=== PATIENT | male | born 1945 | race Caucasian/White ===

== ENCOUNTER 2016-07-03 16:33 | Emergency (ER) | payer OTHER ==
[~2016-07-03] VITALS: Ht 177.8 cm; Wt 81.6 kg
[~2016-07-03 16:33] MED LIST: ASPIRIN EC81 M1 PO; AUGMENTIN 875-1 EACH PO; BRILINTA90 M1 PO; CIPRO 500MG (E500 MG PO; CIPRO500 M1 PO; FLAG500 PO; FLAGYL500 MG PO; METOPROLOL SUCC25 M1 PO; NASONEX17 GM NASB; NORCO 5-325 TA1 EACH PO; SERTRALINE HYD100 MG PO; ZITHROMAX Z-PA250 M1 PO
[2016-07-03 16:54] LABS: ABSOLUTE BASOPHIL COUNT 0 /CUMM (0.0-0.2); ABSOLUTE EOSINOPHIL COUNT 0.2 /CUMM (0.0-0.7); ABSOLUTE GRANULOCYTE CT 6.3 /CUMM (1.4-6.5); ABSOLUTE LYMPH COUNT 1.6 /CUMM (1.2-3.4); ABSOLUTE MONOCYTE COUNT 0.8 /CUMM (0.10-0.60); BASOPHIL % 0.4 % (0.0-2.0); EOSINOPHIL % 2.5 % (0-5); HEMATOCRIT 47.5 % (42-52); MEAN CORPUSCULAR HGB 31.7 PG (27.0-31.0); MEAN CORPUSCULAR HGB CONC 34.3 G/DL (33.0-37.0); MEAN CORPUSCULAR VOLUME 92.4 FL (80.0-94.0); MEAN PLATELET VOLUME 7.2 FL (7.4-10.4); PLATELET COUNT 227 /CUMM (130-400); RBC DISTRIBUTION WIDTH 13.3 % (11.5-14.5); RED BLOOD CELL CT 5.14 /CUMM (4.70-6.10)
--- NOTE | 2016-07-03 17:29 | ED GI/GU/ABDOMINAL COMPLAINT ---
History of Present Illness General Chief Complaint: General Adult Stated Complaint: PT THINKS HE HAS DIVERTICULITIS Source: patient Exam Limitations: no limitations Vital Signs & Intake/Output Vital Signs & Intake/Output Vital Signs Date Time Temp Pulse Resp B/P Pulse O2 O2 Flow FiO2 Ox Delivery Rate 07/03 1924 97.5 64 19 124/65 97 Room Air 07/03 1803 Room Air 07/03 1638 97.4 80 18 137/79 95 Room Air Allergies Coded Allergies: NO KNOWN ALLERGIES (10/16/15) Triage Note: 70 (HX OF SAME). C/O FEW DAY HISTORY LLQ AND RLQ PAIN; WORSE WITH DEEP PALPATION. REPORTS DECREASED APPETITE/PO INTAKE. DENIES N/V/D. DENIES URINARY SYMPTOMS. AFEBRILE. Triage Nurses Notes Reviewed? yes Onset: Abrupt Duration: last night Timing: single episode today Quality/Severity: moderate Location: right lower quadrant, right upper quadrant Activities at Onset: none Prior Abdominal Problems: similar symptoms No Modifying Factors: none Associated Symptoms: abdominal pain HPI: This is a 70 year old male with right sided abdominal pain radiating to the right back. Patient reports the pain started last night after eating chipotle. In April of 2016 the patient had an episodes of diverticuliis and was given a 1 week course of antibiotics after which he states he improved. He has not yet followed up with Dr. Dewitt secondary to a canceled appointment on his account and is due to see him tomorrow. However yesterday he started with right lower quadrant pain after eating food. Previous episode of diverticulitis was sigmoid. (MELIZA CARR,MIMI) Reconcile Medications Ascorbic Acid (Vitamin C) (Unknown Strength) TABLET (Unknown Dose) PO DAILY SUPPLEMENT (Reported) Aspirin (Ecotrin*) 81 MG TABLET.DR 1 TAB PO DAILY HEART HEALTH (Reported) Cholecalciferol (Vitamin D3) (Vitamin D) (Unknown Strength) CAPSULE (Unknown Dose) PO DAILY SUPPLEMENT (Reported) Cyanocobalamin (Vitamin B-12) (Unknown Strength) TABLET (Unknown Dose) PO DAILY SUPPLEMENT (Reported) Hyoscyamine Sulfate (Levsin-Sl) 0.125 MG TAB.SUBL 1-2 TAB SL Q4P PRN abd pain Krill Oil (Unknown Strength) CAPSULE (Unknown Dose) PO DAILY SUPPLEMENT ( Reported) Magnesium Oxide (Magnesium) (Unknown Strength) CAPSULE (Unknown Dose) PO DAILY UNKNOWN (Reported) Metoprolol Succinate 25 MG TAB 0.5 TAB PO DAILY HEART (Reported) Multivitamin (Multi-Day Vitamins) 1 EACH TABLET 1 TAB PO DAILY SUPPLEMENT ( Reported) Ramipril 5 MG CAPSULE 1 CAP PO DAILY BP (Reported) Ticagrelor (Brilinta) 90 MG TABLET 1 TAB PO BID BLOOD THINNER (Reported) Ubidecarenone (Co Q-10) (Unknown Strength) CAPSULE (Unknown Dose) PO DAILY SUPPLEMENT (Reported) Valacyclovir HCl (Valacyclovir) 500 MG TABLET 1 TAB PO BID ANTIVIRAL ( Reported) Vitamin B Complex 1 EACH CAPSULE 1 CAP PO DAILY SUPPLEMENT (Reported) ZINC (Unknown Strength) TABLET (Unknown Dose) PO DAILY SUPPLEMENT (Reported) (JAYSHREE MI MD) Past History Travel History Traveled to [place] past 21 day No Medical History Any Pertinent Medical History? 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 No (MELIZA CARR,MIMI) Review of Systems Review of Systems Constitutional: Denies: chills, fever. EENTM: Reports: no symptoms. Respiratory: Denies: cough, short of breath. Cardiovascular: Denies: chest pain, palpitations. GI: Reports: abdominal pain. Denies: nausea, vomiting. Genitourinary: Reports: no symptoms. Musculoskeletal: Reports: no symptoms. Skin: Reports: no symptoms. Neurological/Psychological: Reports: no symptoms. Hematologic/Endocrine: Denies: bruising, bleeding, polyuria, polydipsia. Immunologic/Allergic: Denies: splenectomy. All Other Systems: Reviewed and Negative (MELIZA CARR,MIMI) Physical Exam Physical Exam General Appearance: well developed/nourished, alert, awake, anxious, mild distress Head: atraumatic, normal appearance Eyes: Bilateral: normal appearance, PERRL, EOMI. Ears, Nose, Throat, Mouth: hearing grossly normal, dental injury, moist mucous membrane Neck: normal inspection, supple, full range of motion Respiratory: normal breath sounds, chest non-tender, no respiratory distress Cardiovascular: regular rate/rhythm Peripheral Pulses: 2+ radial (R), 2+ radial (L) Gastrointestinal: normal bowel sounds, soft, tenderness (MINIMAL RIGHT LOWER QUADRANT) Back: normal inspection, normal range of motion Extremities: normal range of motion, evidence of injury, pelvis stable Neurologic/Psych: no motor/sensory deficits, awake, alert, oriented x 3 Skin: intact, normal color, warm/dry Core Measures ACS in differential dx? No Severe Sepsis Present: No Septic Shock Present: No (MELIZA CARR,MIMI) Progress Differential Diagnosis: appendicitis, diverticulitis, ABSCESS, PERFORATION Plan of Care: Orders Procedure Date/time Status LACTIC ACID 07/03 1939 Active URINALYSIS 07/03 163 Complete LACTIC ACID 07/03 163 Complete COMPREHENSIVE METABOLIC PANEL 07/03 1639 Complete CBC WITHOUT DIFFERENTIAL 07/03 163 Complete Current Medications Sig/Carolynn Start time Last Medication Dose Stop Time Status Admin Ketorolac 30 MG ONCE ONE 07/03 1999 UNVr Tromethamine 07/03 2000 (Toradol) Laboratory Tests 07/03/16 1653: Urine Color YEL, Urine Clarity CLEAR, Urine pH 6.0, Ur Specific [place] 1.015, Urine Protein NEG, Urine Ketones NEG, Urine Nitrite NEG, Urine Bilirubin NEG, Urine Urobilinogen 0.2, Ur Leukocyte Esterase NEG, Ur Microscopic EXAM NOT REQUIRED, Urine Hemoglobin NEG, Urine Glucose NEG 07/03/16 1646: Anion Gap 13, Estimated GFR > 60, BUN/Creatinine Ratio 21.1, Glucose 102 H, Lactic Acid 0.9, Calcium 10.0, Total Bilirubin 1.4 H, AST 22, ALT 35, Alkaline Phosphatase 61, Total Protein 8.6 H, Albumin 5.1 H, Globulin 3.5, Albumin/ Globulin Ratio 1.5, CBC w Diff NO MAN DIFF REQ, RBC 5.14, MCV 92.4, MCH 31.7 H, RDW 13.3, MPV 7.2 L, Gran % 70.0, Lymphocytes % 18.2 L, Monocytes % 8.9, Eosinophils % 2.5, Basophils % 0.4, Absolute Granulocytes 6.3, Absolute Lymphocytes 1.6, Absolute Monocytes 0.8 H, Absolute Eosinophils 0.2, Absolute Basophils 0, PUBS MCHC 34.3 Diagnostic Imaging: Viewed by Me: CT Scan. Discussed w/RAD: CT Scan. Initial ED EKG: none Hand-Off Endorsed To: JAYSHREE MI MD Endorsed Time: 1904 Pending: CT, labs (MIMI HAIDER MD) Radiology Impression: no acute abnormality (JAYSHREE MI MD) Departure Departure Condition: Stable Departure Forms: Customer Survey General Discharge Information (MIMI HAIDER MD) Departure Time of Disposition: 1999 Disposition: HOME OR SELF CARE Clinical Impression Primary Impression: Abdominal pain Qualifiers: Abdominal location: right lower quadrant Qualified Code: R10.31 - Right lower quadrant pain Referrals: OUSMANE CARR,LYUDMILA GRACE MD,JUNO Melendez (PCP/Family) Prescriptions: Current Visit Scripts Hyoscyamine Sulfate (Levsin-Sl) 1-2 TAB SL Q4P PRN abd pain #30 TAB (JAYSHREE MI MD)
[2016-07-03] MEDS ORDERED: VALACYCLOVIR500 M1 PO (17:32)
[2016-07-03] MEDS ORDERED: RAMIPRIL5 M1 PO (17:32)
[2016-07-03] MEDS ORDERED: ZINC50 M2 PO (17:35)
[2016-07-03] MEDS ORDERED: CO Q-10200 MG PO (17:35)
[2016-07-03] MEDS ORDERED: MULTI-DAY VITA1 EACH PO (17:35)
[2016-07-03] MEDS ORDERED: MAGNESIUM400 M1 PO (17:36)
[2016-07-03] MEDS ORDERED: VITAMIN B-121000 MC3 PO (17:39)
[2016-07-03] MEDS ORDERED: VITAMIN B COMP1 EACH PO (17:39)
[2016-07-03] MEDS ORDERED: VITAMIN C250 M3 PO (17:40)
[2016-07-03] MEDS ORDERED: KRILL OIL500 MG PO (17:41)
[2016-07-03] MEDS ORDERED: VITAMIN D2000 UNIT PO (17:41)
--- NOTE | 2016-07-03 19:39 | CT SCAN REPORT ---
EXAMINATION: CT ABDOMEN AND PELVIS WITH CONTRAST CLINICAL INFORMATION: Rule out appendicitis vs. diverticulitis. Right lower quadrant pain since yesterday. History of sigmoid diverticulitis. COMPARISON: 04/23/2016 TECHNIQUE: Multidetector volumetric imaging was performed from the lung bases through the pubic symphysis following the uneventful administration of: Oral contrast: No Intravenous contrast: 95 cc Optiray 320 Sagittal and coronal reformatted images were obtained on the technologist workstation. FINDINGS: LUNG BASES: The visualized lung bases are unremarkable. LIVER, GALLBLADDER, AND BILIARY TREE: The liver is normal in size, shape, and attenuation. Unchanged subcentimeter cyst in the left lobe of the liver. Unchanged low-density lesion in segment 6 either a cyst or hemangioma. The hepatic and portal veins enhance normally. The gallbladder is unremarkable with no evidence of radiopaque gallstones, gallbladder wall thickening, or obvious pericholecystic inflammatory changes. PANCREAS: Normal; no mass or surrounding fluid. SPLEEN: Normal size. No focal lesion. ADRENAL GLANDS: Normal; no mass. KIDNEYS AND URETERS: The kidneys are normal in size, shape, and attenuation. Simple cyst of the posterior cortex of the left mid kidney. No hydronephrosis, hydroureter, or calculi. GASTROINTESTINAL TRACT: Small hiatal hernia. Stomach and small bowel non-dilated. Sigmoid diverticulosis without evidence of diverticulitis. No colonic wall thickening or pericolonic inflammatory changes. Although the appendix is not definitely seen, there are no right lower quadrant inflammatory changes to suggest acute appendicitis. ABDOMINAL WALL: Fat-containing umbilical hernia. LYMPHOVASCULAR STRUCTURES: No lymphadenopathy. The aorta is unremarkable. BLADDER: No focal mass or wall thickening seen. No bladder calculi. PELVIC VISCERA: The prostate and seminal vesicles are normal. OSSEOUS STRUCTURES: Streak artifact from the patient's left total hip arthroplasty limits evaluation. Multilevel degenerative disc disease of the lumbar spine with multilevel bilateral facet arthropathy. IMPRESSION: No CT findings to explain the patient's right lower quadrant pain. Although the appendix is not seen, there are no right lower quadrant inflammatory changes to suggest appendicitis. No evidence of colitis or diverticulitis.
[2016-07-03] MEDS ORDERED: LEVSIN-SL0.125 MG SL (19:58)
[2016-07-03 20:27] VITALS: BP 125/66
== END 2016-07-03 20:28 ==
LOC: ERH 16:33
PROVIDERS: Emergency Medicine
DX: R10.31 Right lower quadrant pain (principal)
CPT/HCPCS: 74177; 81003; 96361; 96374; J1885

== ENCOUNTER 2016-07-30 10:19 | Emergency (ER) | payer OTHER ==
[~2016-07-30] VITALS: Ht 177.8 cm; Wt 81.6 kg
[~2016-07-30 10:19] MED LIST changes: +CO Q-10200 MG PO; +KRILL OIL500 MG PO; +LEVSIN-SL0.125 MG SL; +MAGNESIUM400 M1 PO; +MULTI-DAY VITA1 EACH PO; +RAMIPRIL5 M1 PO; +VALACYCLOVIR500 M1 PO; +VITAMIN B COMP1 EACH PO; +VITAMIN B-121000 MC3 PO; +VITAMIN C250 M3 PO; +VITAMIN D2000 UNIT PO; +ZINC50 M2 PO
--- NOTE | 2016-07-30 11:13 | ED GI/GU/ABDOMINAL COMPLAINT ---
History of Present Illness General Chief Complaint: Abdominal Pain/Flank Pain Stated Complaint: EPIGASTRIC/ R FLANK PAIN HX OF DIVERTICULITIS Source: patient Exam Limitations: no limitations Vital Signs & Intake/Output Vital Signs & Intake/Output Vital Signs Date Time Temp Pulse Resp B/P Pulse O2 O2 Flow FiO2 Ox Delivery Rate 07/30 1318 97.4 64 18 145/78 99 Room Air 07/30 1031 97.3 76 20 158/89 98 Room Air Allergies Coded Allergies: NO KNOWN ALLERGIES (10/16/15) Reconcile Medications Ascorbic Acid (Vitamin C) (Unknown Strength) TABLET (Unknown Dose) PO DAILY SUPPLEMENT (Reported) Aspirin (Ecotrin*) 81 MG TABLET.DR 1 TAB PO DAILY HEART HEALTH (Reported) Cholecalciferol (Vitamin D3) (Vitamin D) (Unknown Strength) CAPSULE (Unknown Dose) PO DAILY SUPPLEMENT (Reported) Cyanocobalamin (Vitamin B-12) (Unknown Strength) TABLET (Unknown Dose) PO DAILY SUPPLEMENT (Reported) Hyoscyamine (Levsin) 0.125 MG TABLET 1 TAB PO Q4 PRN ABDOMINAL SPASMS Hyoscyamine Sulfate (Levsin-Sl) 0.125 MG TAB.SUBL 1-2 TAB SL Q4P PRN abd pain Krill Oil (Unknown Strength) CAPSULE (Unknown Dose) PO DAILY SUPPLEMENT ( Reported) Magnesium Oxide (Magnesium) (Unknown Strength) CAPSULE (Unknown Dose) PO DAILY UNKNOWN (Reported) Metoprolol Succinate 25 MG TAB 0.5 TAB PO DAILY HEART (Reported) Multivitamin (Multi-Day Vitamins) 1 EACH TABLET 1 TAB PO DAILY SUPPLEMENT ( Reported) Ramipril 5 MG CAPSULE 1 CAP PO DAILY BP (Reported) Ticagrelor (Brilinta) 90 MG TABLET 1 TAB PO BID BLOOD THINNER (Reported) Ubidecarenone (Co Q-10) (Unknown Strength) CAPSULE (Unknown Dose) PO DAILY SUPPLEMENT (Reported) Valacyclovir HCl (Valacyclovir) 500 MG TABLET 1 TAB PO BID ANTIVIRAL ( Reported) Vitamin B Complex 1 EACH CAPSULE 1 CAP PO DAILY SUPPLEMENT (Reported) ZINC (Unknown Strength) TABLET (Unknown Dose) PO DAILY SUPPLEMENT (Reported) Triage Note: PT C/O EPIGASTRIC PAIN ON THURSDAY NIGHT WITH NAUSEA, RIGHT MID QUADRANT PAIN AND ONCE IN A WHILE LEFT SIDED CP. WAS SUPPOSED TO HAVE UPPER GI BUT HASNT HEARD BACK ABOUT APPROVAL Triage Nurses Notes Reviewed? yes Onset: Gradual Duration: hour(s): (1) Timing: recent history Quality/Severity: cramping, mild Severity Numbers: 4 Location: right flank Radiation: no radiation Activities at Onset: none Prior Abdominal Problems: similar symptoms Past Sexual History: Unobtainable at this time No Modifying Factors: none HPI: PT is a 70-year-old male with history of diverticulitis presenting to the emergency department with chief complaint of right flank pain has been going on for the past month. Pain has been constant. Patient also reports episode of epigastric pain that happened 3 days ago and lasted about an hour and then resolved. He felt like it was burning in nature. Patient reports mild nausea and decreased by mouth intake since then. Generalized malaise. No fevers or chills. Denies sick contacts. No recent antibiotic use. Denies any diarrhea. No urinary frequency or urgency or dysuria. Denies hematuria. No history kidney stones. Denies taking anything help with symptoms. He saw Dr. Dewitt for his right flank pain and was suppose to be scheduled for an upper GI study but has not received a phone call yet. (GEOVANNA VALENTIN) Past History Travel History Traveled to [place] past 21 day No Medical History Any Pertinent Medical History? 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 No (GEOVANNA VALENTIN) Review of Systems Review of Systems Constitutional: Reports: malaise. Comments Review of systems: See HPI, All other systems negative. Constitutional, no chills fever or weight loss HEENT: No visual changes no sore throat no congestion Cardiovascular: No chest pain ,palpitation , orthopnea or ankle swelling Skin, no jaundice no rashes Respiratory: No dyspnea cough sputum or hemoptysis GI: no vomiting : No dysuria No hematuria Muscle skeletal: no back pain, no neck pain, Neurologic: No numbness no confusion Psych: No stress anxiety or depression,. Heme/endocrine: No bruising no bleeding no polyuria or polydipsia Immunology: No splenectomy or history of AIDS (GEOVANNA VALENTIN) Physical Exam Physical Exam General Appearance: well developed/nourished, no apparent distress, alert, awake , comfortable Gastrointestinal: normal bowel sounds, soft, tenderness Comments: Well-developed well-nourished person in no acute distress HEENT: . Pupils equally round and reactive to light and accommodation. Nose is atraumatic. Neck: Supple, no lymphadenopathy, normal range of motion without pain or tenderness Back: Nontender, no CVA tenderness. Cardiovascular: Regular rate and rhythms no murmurs rubs or gallops, normal JVP Respiratory: Chest nontender. No respiratory distress.breath sounds clear to auscultation bilaterally Abdomen: Soft, mildly tender to palpation in the right flank area, no epigastric pain and palpation, nondistended, no appreciable organomegaly. Normal bowel sounds. No ascites. No rebound or guarding. Unable to appreciate enlarged liver on palpation. Extremity: No edema Neuro: Alert oriented x3 Skin: No appreciable rash on exposed skin, skin is warm and dry. Psych: Mood and affect is normal, memory and judgment is normal. Core Measures ACS in differential dx? Yes Severe Sepsis Present: No Septic Shock Present: No (GEOVANNA VALENTIN) Progress Differential Diagnosis: liver cirrhosis, acute hepatitis, gastritis, viral syndrome, dehydration, which really abnormality, pancreatitis, ACS Plan of Care: Orders Procedure Date/time Status LIPASE 07/30 1145 Complete DIRECT BILIRUBIN 07/30 1145 Complete COMPREHENSIVE METABOLIC PANEL 07/30 1145 Complete AMYLASE 07/30 1145 Complete Add-on Test (ER Only) 07/30 1134 Active TROPONIN LEVEL 07/30 1121 Complete URINALYSIS 07/30 1112 Complete LACTIC ACID 07/30 1112 Complete CBC WITHOUT DIFFERENTIAL 07/30 1112 Complete EKG 07/30 1032 Active Laboratory Tests 07/30/16 1145: Lactic Acid 2.0 07/30/16 1145: Anion Gap 12, Estimated GFR > 60, BUN/Creatinine Ratio 23.8, Glucose 95, Calcium 9.6, Total Bilirubin 0.7, Direct Bilirubin 0.3, AST 21, ALT 34, Alkaline Phosphatase 65, Troponin I < 0.01, Total Protein 7.7, Albumin 4.7, Globulin 3.0, Albumin/Globulin Ratio 1.6, Amylase 54, Lipase 62, CBC w Diff NO MAN DIFF REQ, RBC 4.93, MCV 94.1 H, MCH 32.1 H, RDW 13.6, MPV 7.5, Gran % 66.2, Lymphocytes % 21.4, Monocytes % 9.1, Eosinophils % 2.9, Basophils % 0.4, Absolute Granulocytes 4.0, Absolute Lymphocytes 1.3, Absolute Monocytes 0.5, Absolute Eosinophils 0.2, Absolute Basophils 0, PUBS MCHC 34.1, Urinalysis LIGHT H, Urine Color YEL, Urine Clarity CLEAR, Urine pH 6.0, Ur Specific [place] 1.015, Urine Protein NEG, Urine Ketones NEG, Urine Nitrite NEG, Urine Bilirubin NEG, Urine Urobilinogen 0.2, Ur Leukocyte Esterase NEG, Ur Microscopic SEDIMENT EXAMINED, Urine RBC RARE, Urine WBC RARE, Urine Mucus RARE, Urine Hemoglobin TRACE-INTACT H, Urine Glucose NEG Diagnostic Imaging: Viewed by Me: Ultrasound. Discussed w/RAD: Ultrasound. Radiology Impression: PATIENT: BHARAT TEIXEIRA PRESENT AGE: 70 PATIENT ACCOUNT NO: [id number] : 47 LOCATION: [facility] ORDERING PHYSICIAN: GEOVANNA KANG SERVICE DATE: 07/30/16 EXAM TYPE: US - US-LIMITED ABDOMEN EXAMINATION: US ABDOMEN LIMITED CLINICAL INFORMATION: Right upper quadrant pain. Right flank pain. Nausea 4 days ago.. COMPARISON: CT abdomen pelvis 07/03/2016 and abdominal ultrasound 07/17/2011 TECHNIQUE: Real- time imaging of the right upper quadrant abdominal viscera. Mildly limited examination secondary to overlying bowel gas. FINDINGS: PANCREAS: The pancreas is obscured by overlying bowel gas therefore cannot be accurately evaluated. LIVER: Poorly visualized but grossly unremarkable. The liver demonstrates normal size, contour and echogenicity. No focal lesion or intrahepatic biliary duct dilatation. GALLBLADDER: The gallbladder is physiologically distended. There are no definitive gallstones. Echogenic foci dependently within the gallbladder likely represents echogenic bile. The gallbladder wall is mildly prominent measuring 4 mm in thickness. No pericholecystic fluid is appreciated. Negative sonographic Conn's sign. COMMON BILE DUCT: Normal in caliber measuring 0.4 cm in diameter. RIGHT KIDNEY: No hydronephrosis. No renal calculi or focal parenchymal lesions. The kidney measures 9.6 cm in maximum dimension. FREE FLUID : None. IMPRESSION: Echogenic bile within the gallbladder without definitive gallstones. The gallbladder wall is mildly prominent, however, there is no evidence of pericholecystic fluid. Sonographic Conn's sign is negative. Clinical correlation recommended. Initial ED EKG: NSR Comments: Patient given IV fluids on arrival. Declined pain medication. Patient was informed of all lab work results and imaging study results. No acute pathology found him blood work or imaging. Likely chronic pain. Patient needs to follow with GI. Educated on signs and symptoms return. EKG is normal sinus. Troponin negative. (GEOVANNA VALENTIN) Departure Departure Time of Disposition: 1342 Disposition: HOME OR SELF CARE Condition: Stable Clinical Impression Primary Impression: Flank pain Referrals: SANJAY CARR,JUNO Melendez (PCP/Family) Additional Instructions: Follow-up with Dr. Dewitt call to make an appointment. Take Levsin as directed to help with abdominal discomfort. Increase fluids. Return for worsening symptoms or concerns. Avoid fatty foods. Departure Forms: Customer Survey D/C INS-APPENDICITIS EXCLUSION General Discharge Information Prescriptions: Current Visit Scripts Hyoscyamine (Levsin) 1 TAB PO Q4 PRN ABDOMINAL SPASMS #20 TAB (GEOVANNA VALENTIN) PA/TEMPORARY STAFF ACCOUNTANT Co-Sign Statement Statement: ED Attending supervision documentation- x I saw and evaluated the patient. I have also reviewed all the pertinent lab results and diagnostic results. I agree with the findings and the plan of care as documented in the PA's/TEMPORARY STAFF ACCOUNTANT's documentation. [] I have reviewed the ED Record and agree with the PA's/TEMPORARY STAFF ACCOUNTANT's documentation. [] Additions or exceptions (if any) to the PAs/TEMPORARY STAFF ACCOUNTANT's note and plan are summarized below: [] (HIWOT CARR,JAYSHREE)
[2016-07-30 12:08] LABS: ABSOLUTE BASOPHIL COUNT 0 /CUMM (0.0-0.2); ABSOLUTE EOSINOPHIL COUNT 0.2 /CUMM (0.0-0.7); ABSOLUTE LYMPH COUNT 1.3 /CUMM (1.2-3.4); ABSOLUTE MONOCYTE COUNT 0.5 /CUMM (0.10-0.60); BASOPHIL % 0.4 % (0.0-2.0); EOSINOPHIL % 2.9 % (0-5); GRANULOCYTE % 66.2 % (42.2-75.2); HEMATOCRIT 46.4 % (42-52); MEAN CORPUSCULAR HGB 32.1 PG (27.0-31.0); MEAN CORPUSCULAR HGB CONC 34.1 G/DL (33.0-37.0); MEAN CORPUSCULAR VOLUME 94.1 FL (80.0-94.0); MEAN PLATELET VOLUME 7.5 FL (7.4-10.4); PLATELET COUNT 194 /CUMM (130-400); RBC DISTRIBUTION WIDTH 13.6 % (11.5-14.5); RED BLOOD CELL CT 4.93 /CUMM (4.70-6.10)
[2016-07-30 13:18] VITALS: BP 145/78
--- NOTE | 2016-07-30 13:36 | ULTRASOUND REPORT ---
EXAMINATION: US ABDOMEN LIMITED CLINICAL INFORMATION: Right upper quadrant pain. Right flank pain. Nausea 4 days ago.. COMPARISON: CT abdomen pelvis 07/03/2016 and abdominal ultrasound 07/17/2011 TECHNIQUE: Real-time imaging of the right upper quadrant abdominal viscera. Mildly limited examination secondary to overlying bowel gas. FINDINGS: PANCREAS: The pancreas is obscured by overlying bowel gas therefore cannot be accurately evaluated. LIVER: Poorly visualized but grossly unremarkable. The liver demonstrates normal size, contour and echogenicity. No focal lesion or intrahepatic biliary duct dilatation. GALLBLADDER: The gallbladder is physiologically distended. There are no definitive gallstones. Echogenic foci dependently within the gallbladder likely represents echogenic bile. The gallbladder wall is mildly prominent measuring 4 mm in thickness. No pericholecystic fluid is appreciated. Negative sonographic Conn's sign. COMMON BILE DUCT: Normal in caliber measuring 0.4 cm in diameter. RIGHT KIDNEY: No hydronephrosis. No renal calculi or focal parenchymal lesions. The kidney measures 9.6 cm in maximum dimension. FREE FLUID: None. IMPRESSION: Echogenic bile within the gallbladder without definitive gallstones. The gallbladder wall is mildly prominent, however, there is no evidence of pericholecystic fluid. Sonographic Conn's sign is negative. Clinical correlation recommended.
[2016-07-30] MEDS ORDERED: LEVSIN0.125 M1 PO (13:44)
== END 2016-07-30 14:02 ==
LOC: ERH 10:19
PROVIDERS: Physician Assistant
DX: R10.31 Right lower quadrant pain (principal)
CPT/HCPCS: 81001; 93005; 93010; 96361; 96374; J1885

== ENCOUNTER 2016-08-13 13:55 | Emergency (ER) | payer OTHER ==
[~2016-08-13] VITALS: Ht 177.8 cm; Wt 79.4 kg
[~2016-08-13 13:55] MED LIST changes: +LEVSIN0.125 M1 PO
[2016-08-13] MEDS ORDERED: SERTRALINE HCL50 MG PO (14:52)
[2016-08-13] MEDS ORDERED: TRIAMCINOLONE A15 G1 TOP (14:53)
--- NOTE | 2016-08-13 16:07 | ED GI/GU/ABDOMINAL COMPLAINT ---
History of Present Illness General Chief Complaint: Abdominal Pain/Flank Pain Stated Complaint: RT SIDE FLANK PAIN, INCREASED URINATION Source: patient, family, old records Exam Limitations: no limitations Vital Signs & Intake/Output Vital Signs & Intake/Output Vital Signs Date Time Temp Pulse Resp B/P Pulse O2 O2 Flow FiO2 Ox Delivery Rate 08/13 1622 69 18 188/85 95 Room Air 08/13 1405 98.8 82 18 136/84 98 Room Air Allergies Coded Allergies: NO KNOWN ALLERGIES (10/16/15) Reconcile Medications Ascorbic Acid (Vitamin C) (Unknown Strength) TABLET (Unknown Dose) PO DAILY SUPPLEMENT (Reported) Aspirin (Ecotrin*) 81 MG TABLET.DR 1 TAB PO DAILY HEART HEALTH (Reported) Cholecalciferol (Vitamin D3) (Vitamin D) (Unknown Strength) CAPSULE (Unknown Dose) PO DAILY SUPPLEMENT (Reported) Cyanocobalamin (Vitamin B-12) (Unknown Strength) TABLET (Unknown Dose) PO DAILY SUPPLEMENT (Reported) Krill Oil (Unknown Strength) CAPSULE (Unknown Dose) PO DAILY SUPPLEMENT ( Reported) Lorazepam (Ativan) 1 MG TABLET 1 TAB PO QHS PRN anxiety Magnesium Oxide (Magnesium) (Unknown Strength) CAPSULE (Unknown Dose) PO DAILY UNKNOWN (Reported) Metoprolol Succinate 25 MG TAB 0.5 TAB PO DAILY HEART (Reported) Multivitamin (Multi-Day Vitamins) 1 EACH TABLET 1 TAB PO DAILY SUPPLEMENT ( Reported) Sertraline HCl 50 MG TABLET 1 TAB PO DAILY MENTAL HEALTH (Reported) Ticagrelor (Brilinta) 90 MG TABLET 1 TAB PO BID BLOOD THINNER (Reported) Triamcinolone Acetonide 0.1 % CREAM..G. SKIN ISSUES (Reported) Ubidecarenone (Co Q-10) (Unknown Strength) CAPSULE (Unknown Dose) PO DAILY SUPPLEMENT (Reported) Valacyclovir HCl (Valacyclovir) 500 MG TABLET 1 TAB PO BID ANTIVIRAL ( Reported) Vitamin B Complex 1 EACH CAPSULE 1 CAP PO DAILY SUPPLEMENT (Reported) ZINC (Unknown Strength) TABLET (Unknown Dose) PO DAILY SUPPLEMENT (Reported) Triage Note: PT STATES THAT HE WAS SEEN 2 WEEKS AGO FOR R SIDE FLANK PAIN, HAD US WHICH WAS NEGATIVE. COMPLAINS OF PAIN STILL THERE AND THAT HE HAS HAD INCREASED URINATION AND PAIN WITH URINATION Triage Nurses Notes Reviewed? yes Onset: Gradual Duration: week(s): (4), constant Timing: recent history Quality/Severity: aching, cramping Severity Numbers: 5 Location: right flank, right lower quadrant, right upper quadrant Radiation: no radiation Activities at Onset: none Prior Abdominal Problems: similar symptoms No Modifying Factors: none Associated Symptoms: denies HPI: This is a 70-year-old male presents to emergency room for evaluation complain persistent right sided abdominal pain for the past 1 month associated with urinary urgency and frequency. The patient was seen here 2 weeks ago for the same which time he had a negative right upper quadrant ultrasound and lab work performed. Patient states he has been seen by Dr. Dewitt in the past advised he may need further imaging. He denies he symptoms are worse with food no fever no chills no nausea no vomiting no recent weight loss no black or bloody stools no change in his bowel movements. The patient does report that he has not been sleeping well since the symptoms began and believes that he is anxious. He has been seen by [facility] in the past, denies being seen currently, declining wishing to speak with crisis today. no si/hi. no cp , cough dyspnea. (BHARAT GUERRERO) Past History Travel History Traveled to [place] past 21 day No Medical History Any Pertinent Medical History? 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 No (BHARAT GUERRERO) Review of Systems Review of Systems Constitutional: Reports: see HPI. All Other Systems: Reviewed and Negative Comments Review of systems: See HPI, All other systems negative. Constitutional, no chills no fever, no malaise HEENT: No visual changes no sore throat no congestion Cardiovascular: No chest pain , no palpitation , Skin, no jaundice no rashes, no change in skin Respiratory: No dyspnea no cough no sputum GI: No nausea no vomiting, no diarrhea, no bloating/constipation : No dysuria No hematuria, frequency, no discharge Muscle skeletal: No joint pain, no back pain, no neck pain, Neurologic: No numbness no headache Psych: No stress Heme/endocrine: No bruising no bleeding Immunology: No lymphadenopathy (BHARAT GUERRERO) Physical Exam Physical Exam General Appearance: well developed/nourished, no apparent distress, alert, awake Gastrointestinal: normal bowel sounds, soft, non-tender Comments: Well-developed well-nourished person in no acute distress HEENT: Normal EENT exam; PERRL, EOMI, no nystagmus. HEAD is atraumatic. moist mucous membranes. Neck: Supple, normal range of motion without pain or tenderness Back: Nontender, no CVA tenderness. Full range of motion Cardiovascular: Regular rate and rhythms no murmurs rubs Respiratory: Chest nontender.There were no bony deformities, no asymmetry. No respiratory distress. Patient speaking in full complete sentences. Breath sounds clear to auscultation bilaterally: NO W/R/R Abdomen: Soft, negative Conn's sign no right upper quadrant tenderness abdomen remained soft nontender throughout nondistended, no appreciable organomegaly. Normal bowel sounds. No rebound/guarding, No appreciable enlargement of the abdominal aorta, No ascites. Extremity: No edema, full range of motion of extremities Neuro: Alert oriented x3, motor sensory normal, There were no obvious focal neurologic abnormalities. Skin: No appreciable rash on exposed skin, skin is warm and dry. Psych: Mood and affect is normal, memory and judgment is normal. Core Measures ACS in differential dx? No Severe Sepsis Present: No Septic Shock Present: No (BHARAT GUERRERO) Progress Differential Diagnosis: appendicitis, biliary colic, bowel obstruction, colon cancer, cholecystitis, diverticulitis, gastritis, hepatitis, hernia, inflamm bowel dis, Rachel-Kristy tear, peptic ulcer, PUD/GERD, perforated viscous, SBO Plan of Care: Orders Procedure Date/time Status Saline Lock 08/13 1550 Active COMPREHENSIVE METABOLIC PANEL 08/13 1550 Complete CBC WITHOUT DIFFERENTIAL 08/13 1550 Complete URINALYSIS 08/13 1409 Complete Laboratory Tests 08/13/16 1600: Anion Gap 15, Estimated GFR > 60, BUN/Creatinine Ratio 21.4, Glucose 92, Calcium 9.8, Total Bilirubin 0.9, AST 25, ALT 29, Alkaline Phosphatase 58, Total Protein 7.9, Albumin 4.8, Globulin 3.1, Albumin/Globulin Ratio 1.5, CBC w Diff NO MAN DIFF REQ, RBC 4.97, MCV 94.7 H, MCH 31.8 H, RDW 14.3, MPV 7.7, Gran % 71.7, Lymphocytes % 18.4 L, Monocytes % 8.6, Eosinophils % 1.0, Basophils % 0.3, Absolute Granulocytes 4.8, Absolute Lymphocytes 1.2, Absolute Monocytes 0.6, Absolute Eosinophils 0.1, Absolute Basophils 0, PUBS MCHC 33.6 08/13/16 1415: Urine Color YEL, Urine Clarity CLEAR, Urine pH 7.0, Ur Specific [place] 1.010, Urine Protein NEG, Urine Ketones NEG, Urine Nitrite NEG, Urine Bilirubin NEG, Urine Urobilinogen 0.2, Ur Leukocyte Esterase NEG, Ur Microscopic EXAM NOT REQUIRED, Urine Hemoglobin NEG, Urine Glucose NEG Old records reviewed including the patient's previous CT in July 03 and recent ultrasound were reviewed patient is resting complete abdomen is soft nontender he is requesting something for his anxiety as well as some to go home with help him sleep has been on Ativan before, I discussed the patient and his family at length all of his lab results patient has rested comfortable throughout the ER stay declining anything for pain reports feeling improved after being given Ativan advised need for close follow- up with primary care as well as GI, information was provided for care at the patient's request advised to return anytime sooner if any concerns answered all their questions they feel comfortable with plan IMPRESSION: Echogenic bile within the gallbladder without definitive gallstones. The gallbladder wall is mildly prominent, however, there is no evidence of pericholecystic fluid. Sonographic Conn's sign is negative. Clinical correlation recommended. MPRESSION: No CT findings to explain the patient's right lower quadrant pain. Although the appendix is not seen, there are no right lower quadrant inflammatory changes to suggest appendicitis. No evidence of colitis or diverticulitis. 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 Ativan as discussed. Departure Forms: Customer Survey General Discharge Information Prescriptions: Current Visit Scripts Lorazepam (Ativan) 1 TAB PO QHS PRN anxiety #10 TAB (GRAZYNA KANG,BHARAT)
[2016-08-13 16:22] VITALS: BP 188/85
[2016-08-13 16:31] LABS: ABSOLUTE BASOPHIL COUNT 0 /CUMM (0.0-0.2); ABSOLUTE EOSINOPHIL COUNT 0.1 /CUMM (0.0-0.7); ABSOLUTE GRANULOCYTE CT 4.8 /CUMM (1.4-6.5); ABSOLUTE LYMPH COUNT 1.2 /CUMM (1.2-3.4); ABSOLUTE MONOCYTE COUNT 0.6 /CUMM (0.10-0.60); BASOPHIL % 0.3 % (0.0-2.0); GRANULOCYTE % 71.7 % (42.2-75.2); MEAN CORPUSCULAR HGB 31.8 PG (27.0-31.0); MEAN CORPUSCULAR HGB CONC 33.6 G/DL (33.0-37.0); MEAN CORPUSCULAR VOLUME 94.7 FL (80.0-94.0); MEAN PLATELET VOLUME 7.7 FL (7.4-10.4); PLATELET COUNT 216 /CUMM (130-400); RBC DISTRIBUTION WIDTH 14.3 % (11.5-14.5); RED BLOOD CELL CT 4.97 /CUMM (4.70-6.10); WHITE BLOOD CELL COUNT 6.8 /CUMM (4.8-10.8)
[2016-08-13] MEDS ORDERED: ATIVAN1 M1 PO (17:16)
== END 2016-08-13 17:40 ==
LOC: ERH 13:55
PROVIDERS: Physician Assistant Medical
DX: G47.00 Insomnia, unspecified (principal); R10.31 Right lower quadrant pain; R10.11 Right upper quadrant pain
CPT/HCPCS: 81003; 96361; 96374

== ENCOUNTER 2016-12-09 14:40 | Emergency (ER) | payer OTHER ==
[~2016-12-09] VITALS: Ht 180.3 cm; Wt 79.4 kg
[~2016-12-09 14:40] MED LIST changes: +ATIVAN1 M1 PO; +SERTRALINE HCL50 MG PO; +TRIAMCINOLONE A15 G1 TOP
[2016-12-09] MEDS ORDERED: MAGNESIUM CITR100 M1 PO (15:21)
--- NOTE | 2016-12-09 15:25 | RADIOLOGY REPORT ---
EXAMINATION: XR CHEST CLINICAL INFORMATION: Productive cough. COMPARISON: Chest x-ray 08/08/2015 TECHNIQUE: 2 views of the chest were obtained. FINDINGS: Lungs are clear. No pulmonary vascular congestion. No infiltrate or pleural effusion. No pneumothorax. The heart size is normal. The cardiac and the mediastinal contours are normal. There is an intact and a second disrupted cerclage wire over the right shoulder. Compared to prior chest x-ray there is no change. IMPRESSION: No acute abnormality the chest.
--- NOTE | 2016-12-09 16:06 | ED GENERAL ADULT ---
History of Present Illness General Chief Complaint: Chest Pain Stated Complaint: CHEST PRESSURE, COUGH AND CONGESTION Source: patient Exam Limitations: no limitations Vital Signs & Intake/Output Vital Signs & Intake/Output Vital Signs Date Time Temp Pulse Resp B/P B/P Pulse O2 O2 Flow FiO2 Mean Ox Delivery Rate 12/09 2239 97.9 78 18 136/63 96 12/09 1929 97.8 86 18 113/70 96 12/09 1914 97.6 75 18 117/59 98 Room Air 12/09 1848 97 12/09 1716 97.8 69 20 116/69 97 Room Air 12/09 1539 Room Air 12/09 1449 98.6 83 20 116/74 98 Room Air Allergies Coded Allergies: NO KNOWN ALLERGIES (10/16/15) Triage Note: PT C/O CHEST PRESSURE, CONGESTION AND PRODUCTIVE COUGH X 2-3 WEEKS ON AND OFF. Triage Nurses Notes Reviewed? yes Onset: Gradual Duration: week(s): Timing: recent history Severity: moderate HPI: 71yo male with hx of CAD s/p 3 stints last year presents to ED complaining of persistent cough, congestion, and chest pressure x 3 weeks. Patient states his cough is productive of yellow sputum. He states his symptoms have been gradually worsening. Chest pain is described as substernal pressure 2/10 with radiation to left chest and has been constant for the past 3 weeks. There are no modifying factors for his chest pain. The patient also c/o dyspnea with his cough. He denies fevers, chills, nausea, vomiting, abdominal pain, changes in bowel movements, syncope, ear pain, sore throat. (BRITTANY PETERSEN PA-C) Reconcile Medications Ascorbic Acid (Vitamin C) (Unknown Strength) TABLET (Unknown Dose) PO DAILY SUPPLEMENT (Reported) Aspirin (Ecotrin*) 81 MG TABLET. 1 TAB PO DAILY HEART HEALTH (Reported) Augmentin (Augmentin 500-125 Tablet) 500 MG-125 MG TABLET 1 TAB PO TID INFECTION Brompheniramine/Pseudoephed/Dm (Bromfed Dm Cough Syrup) 2 MG-30 MG-10 MG/5 ML SYRUP 10 ML PO Q6P PRN COUGH/COLD SYMPTOMS Cholecalciferol (Vitamin D3) (Vitamin D) (Unknown Strength) CAPSULE (Unknown Dose) PO DAILY SUPPLEMENT (Reported) Cyanocobalamin (Vitamin B-12) (Unknown Strength) TABLET (Unknown Dose) PO DAILY SUPPLEMENT (Reported) Krill Oil (Unknown Strength) CAPSULE (Unknown Dose) PO DAILY SUPPLEMENT ( Reported) Magnesium Citrate (Unknown Strength) TABLET (Unknown Dose) PO DAILY SUPPLEMENT (Reported) Metoprolol Succinate 25 MG TAB 0.5 TAB PO DAILY HEART (Reported) Multivitamin (Multi-Day Vitamins) 1 EACH TABLET 1 TAB PO DAILY SUPPLEMENT ( Reported) Ticagrelor (Brilinta) 90 MG TABLET 1 TAB PO BID BLOOD THINNER (Reported) Ubidecarenone (Co Q-10) (Unknown Strength) CAPSULE (Unknown Dose) PO DAILY SUPPLEMENT (Reported) Valacyclovir HCl (Valacyclovir) 500 MG TABLET 1 TAB PO BID ANTIVIRAL ( Reported) Vitamin B Complex 1 EACH CAPSULE 1 CAP PO DAILY SUPPLEMENT (Reported) ZINC (Unknown Strength) TABLET (Unknown Dose) PO DAILY SUPPLEMENT (Reported) (JOSE CARR,DAVID Mao) Past History Travel History Traveled to [place] past 21 day No Medical History Any Pertinent Medical History? 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 No (BRITTANY PETERSEN PA-C) Review of Systems Review of Systems Constitutional: Reports: no symptoms. EENTM: Reports: see HPI. Respiratory: Reports: see HPI. Cardiovascular: Reports: see HPI. GI: Reports: no symptoms. Genitourinary: Reports: no symptoms. Musculoskeletal: Reports: no symptoms. Skin: Reports: no symptoms. Neurological/Psychological: Reports: no symptoms. Hematologic/Endocrine: Reports: no symptoms. Immunologic/Allergic: Reports: no symptoms. All Other Systems: Reviewed and Negative (BRITTANY PETERSEN PA-C) Physical Exam Physical Exam General Appearance: well developed/nourished, no apparent distress, alert, awake Head: atraumatic, normal appearance Eyes: Bilateral: normal appearance, EOMI. Ears, Nose, Throat: normal pharynx, normal ENT inspection, hearing grossly normal, moist mucus membranes, TMs with good cone of light, no erythema bilaterally Neck: normal inspection, supple, full range of motion Respiratory: normal breath sounds, no respiratory distress, lungs clear Cardiovascular: regular rate/rhythm Gastrointestinal: normal bowel sounds, soft, non-tender Back: normal inspection, normal range of motion Extremities: normal inspection, normal range of motion Neurologic/Psych: awake, alert, oriented x 3 Skin: intact, normal color (TRINITY MITCHELL,BRITTANY) Core Measures ACS in differential dx? No CVA/TIA Diagnosis: No Severe Sepsis Present: No Septic Shock Present: No (JOSE CARR,DAVID Mao) Progress Differential Diagnoses I considered the following diagnoses in my evaluation of the patient: [ACS, URI, PNA, sinusitis, angina] Diagnostic Imaging: Viewed by Me: Radiology Read. Discussed w/RAD: Radiology Read. CXR Impression: PATIENT: BHARAT TEIXEIRA PRESENT AGE: 71 PATIENT ACCOUNT NO: [id number] : 47 LOCATION: [facility] ORDERING PHYSICIAN: BRITTANY PETERSEN PA-C SERVICE DATE: 12/09/16 EXAM TYPE: RAD - XRY-CHEST XRAY, PA AND LATERAL EXAMINATION: XR CHEST CLINICAL INFORMATION: Productive cough. COMPARISON: Chest x-ray 08/08/2015 TECHNIQUE: 2 views of the chest were obtained. FINDINGS: Lungs are clear. No pulmonary vascular congestion. No infiltrate or pleural effusion. No pneumothorax. The heart size is normal. The cardiac and the mediastinal contours are normal. There is an intact and a second disrupted cerclage wire over the right shoulder. Compared to prior chest x-ray there is no change. IMPRESSION: No acute abnormality the chest. DICTATED BY: PAUL HAYWOOD MD DATE/TIME DICTATED:12/09/161517 SPEECH LANGUAGE PATHOLOGY ASSISTANT:EH DATE/TIME TRANSCRIBED:12/09/161517 CONFIDENTIAL, DO NOT COPY WITHOUT APPROPRIATE AUTHORIZATION. <Electronically signed in Other Vendor System> SIGNED BY: PAUL HAYWOOD MD 12/09/16 1629 Initial ED EKG: sinus rhythm at 83bpm, normal axis, RBBB Prior EKG: changed Repeat EKG: changed (RBBB with multiple PVCs) Hand-Off Endorsed To: JOSE CARR,DAVID Mao Endorsed Time: 2121 Pending: CT Comments: CT chest pending (TRINITY MITCHELL,BRITTANY) Differential Diagnoses I considered the following diagnoses in my evaluation of the patient: Plan of Care: Orders Procedure Date/time Status Heart Healthy Diet 12/[address] CHEST W IV CONTRAST 12/10 2107 Active TROPONIN LEVEL 12/09 191 Complete EKG 12/09 191 Active B-TYPE NATRIURETIC PEP (BNP) 12/09 1610 Complete TROPONIN LEVEL 12/09 1547 Complete COMPREHENSIVE METABOLIC PANEL 12/09 154 Complete CBC WITHOUT DIFFERENTIAL 12/09 154 Complete EKG 12/09 1442 Active Laboratory Tests 12/09/16 192: Troponin I < 0.01 12/09/16 1610: Anion Gap 12, Estimated GFR > 60, BUN/Creatinine Ratio 23.8, Glucose 79, Calcium 9.1, Total Bilirubin 0.9, AST 21, ALT 32, Alkaline Phosphatase 65, Troponin I < 0.01, Wyq-R-Lcpwyyudxzw Pept 98.0, Total Protein 7.1, Albumin 4.2, Globulin 2.9, Albumin/Globulin Ratio 1.4, CBC w Diff NO MAN DIFF REQ, RBC 4.29 L, MCV 95.7 H , MCH 32.3 H, RDW 13.5, MPV 7.4, Gran % 62.8, Lymphocytes % 21.4, Monocytes % 10.4 H, Eosinophils % 4.8, Basophils % 0.6, Absolute Granulocytes 5.1, Absolute Lymphocytes 1.7, Absolute Monocytes 0.8 H, Absolute Eosinophils 0.4, Absolute Basophils 0, PUBS MCHC 33.8 12/09/16 1553: Sln-P-Gipryzylyej Pept Cancelled The patient has a 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 He has a right bundle branch block on his EKG which appears different than the previous EKG in July. Spoke with Dr. Lim and person recommends repeat EKG and troponin and states that he does not think this RBBB is new for the patient. 20:20 Patient is sitting comfortably in stretcher, he is in no acute distress, his vital signs are stable. He is nontoxic-appearing. He is requesting a food tray. His second troponin and EKG are within normal limits. Spoke with Dr. Lim on the phone to update him on results, he is recommending CT today of chest given patient's persistent chest pain without any aneurysms. The patient agrees to further imaging. 21:22 Patient signed out to Dr. Adamson with CT scans pending. (TRINITY MITCHELL,BRITTANY) Diagnostic Imaging: Discussed w/RAD: CT Scan. Radiology Impression: PATIENT: BHARAT TEIXEIRA PRESENT AGE: 71 PATIENT ACCOUNT NO: [id number] : 47 LOCATION: [facility] ORDERING PHYSICIAN: BRITTANY PETERSEN PA-C SERVICE DATE: 12/09/16 EXAM TYPE: CAT - CT CHEST W IV CONTRAST EXAMINATION: CT CHEST WITH CONTRAST CLINICAL INFORMATION: Persistent chest pain. Concern for thoracic aortic aneurysm COMPARISON: Chest x- ray 12/09/2016. CT scan abdomen pelvis 07/03/2016 TECHNIQUE: Multidetector volumetric CT imaging of the chest was obtained after the administration of 95 mL of Optiray 320 intravenous contrast without immediate adverse reactions. Axial MIP volume rendering provided. Sagittal and coronal reformatted images were obtained. DLP: 252.61 mGy-cm FINDINGS: VASCULAR: Normal thoracic aorta. No aneurysm or dissection. There is normal enhancement of the pulmonary arteries with no evidence of pulmonary emboli. There is vascular calcification of coronary arteries LUNGS: There is a groundglass opacity in the anterior right lower lobe measuring about 3 cm, axial image 310 (5), sagittal image 90. There are a few scattered 1 to 3 mm lung nodules bilateral MEDIASTINUM: No mediastinal hematoma. No mass or significant lymphadenopathy. Small hiatal hernia. PLEURA: There is no pleural effusion. No pleural mass or thickening. AXILLA: No lymphadenopathy. UPPER ABDOMEN: Unremarkable. OSSEOUS STRUCTURES: Bridging degenerative spurs of the midthoracic spine vertebrae. IMPRESSION: 1. No vascular abnormality of the aorta or pulmonary arteries. 2. Small groundglass opacity in the anterior right lower lobe. This is nonspecific. 2017/Fleischner Society recommendation, repeat follow-up CT chest in 6 months. DICTATED BY: PAUL HAYWOOD MD DATE/TIME DICTATED:12/09/162158 SPEECH LANGUAGE PATHOLOGY ASSISTANT:EH DATE/TIME TRANSCRIBED:12/09/162158 CONFIDENTIAL, DO NOT COPY WITHOUT APPROPRIATE AUTHORIZATION. <Electronically signed in Other Vendor System> SIGNED BY: PAUL HAYWOOD MD 12/09/16 2213 Comments: 12/09/2016 10:47:40 PM patient signed out to me by JORGE LUIS. I have updated Bharat on his test results. He appears comfortable and is eating a fruit salad. I feel he is stable for outpatient management of an upper respiratory illness. I doubt acute coronary syndrome or any vascular disease/pulmonary emboli. (JOSE CARR,DAVID Mao) Departure Departure Condition: Stable Referrals: SANJAY CARR,JUNO Melendez (PCP/Family) Departure Forms: Customer Survey General Discharge Information (TRINITY MITCHELL,BRITTANY) Departure Disposition: HOME OR SELF CARE Clinical Impression Primary Impression: Viral upper respiratory illness Additional Instructions: Lots of fluids and rest. Ibuprofen 600 mg every 6 hours as needed for fever and muscle aches or chills. Augmentin as prescribed. Bromfed DM for cough or cold symptoms as needed. Follow-up with your primary care doctor in one week if not improved. Return if any concerns or sudden worsening. Please note that there might be incidental findings in your evaluation that are unrelated to the current emergency department visit. Please notify your primary care doctor about this emergency department visit in order to obtain and review all of the testing performed so that these incidental findings can be monitored as needed. If you had an x-ray performed, please understand that some fractures may not be seen on the initial set of x-rays. If your symptoms persist you might need a repeat set of x-rays to check for such a fracture. If you had a laceration evaluated, please understand that foreign bodies such as glass or wood may not be visible to the naked eye or on plain x-rays. If the wound becomes red, swollen, increasingly more painful or if there is any drainage from the wound, please have it reevaluated by a physician for the possibility of a retained foreign body. Thank you for choosing the [facility] for your care. It was a pleasure to serve you today. David Adamson M.D. [facility] Prescriptions: Current Visit Scripts Augmentin (Augmentin 500-125 Tablet) 1 TAB PO TID #21 TAB Brompheniramine/Pseudoephed/Dm (Bromfed Dm Cough Syrup) 10 ML PO Q6P PRN COUGH/ COLD SYMPTOMS #240 ML (JOSE CARR,DAVID Mao) Critical Care Note Critical Care Note Critical Care Time: 30-74 min (DAVID ADAMSON MD)
[2016-12-09 16:25] LABS: ABSOLUTE BASOPHIL COUNT 0 /CUMM (0.0-0.2); ABSOLUTE EOSINOPHIL COUNT 0.4 /CUMM (0.0-0.7); ABSOLUTE GRANULOCYTE CT 5.1 /CUMM (1.4-6.5); ABSOLUTE LYMPH COUNT 1.7 /CUMM (1.2-3.4); ABSOLUTE MONOCYTE COUNT 0.8 /CUMM (0.10-0.60); BASOPHIL % 0.6 % (0.0-2.0); EOSINOPHIL % 4.8 % (0-5); GRANULOCYTE % 62.8 % (42.2-75.2); MEAN CORPUSCULAR HGB 32.3 PG (27.0-31.0); MEAN CORPUSCULAR HGB CONC 33.8 G/DL (33.0-37.0); MEAN CORPUSCULAR VOLUME 95.7 FL (80.0-94.0); MEAN PLATELET VOLUME 7.4 FL (7.4-10.4); PLATELET COUNT 238 /CUMM (130-400); RBC DISTRIBUTION WIDTH 13.5 % (11.5-14.5); RED BLOOD CELL CT 4.29 /CUMM (4.70-6.10); WHITE BLOOD CELL COUNT 8.1 /CUMM (4.8-10.8)
--- NOTE | 2016-12-09 22:13 | CT SCAN REPORT ---
EXAMINATION: CT CHEST WITH CONTRAST CLINICAL INFORMATION: Persistent chest pain. Concern for thoracic aortic aneurysm COMPARISON: Chest x-ray 12/09/2016. CT scan abdomen pelvis 07/03/2016 TECHNIQUE: Multidetector volumetric CT imaging of the chest was obtained after the administration of 95 mL of Optiray 320 intravenous contrast without immediate adverse reactions. Axial MIP volume rendering provided. Sagittal and coronal reformatted images were obtained. DLP: 252.61 mGy-cm FINDINGS: VASCULAR: Normal thoracic aorta. No aneurysm or dissection. There is normal enhancement of the pulmonary arteries with no evidence of pulmonary emboli. There is vascular calcification of coronary arteries LUNGS: There is a groundglass opacity in the anterior right lower lobe measuring about 3 cm, axial image 310 (5), sagittal image 90. There are a few scattered 1 to 3 mm lung nodules bilateral MEDIASTINUM: No mediastinal hematoma. No mass or significant lymphadenopathy. Small hiatal hernia. PLEURA: There is no pleural effusion. No pleural mass or thickening. AXILLA: No lymphadenopathy. UPPER ABDOMEN: Unremarkable. OSSEOUS STRUCTURES: Bridging degenerative spurs of the midthoracic spine vertebrae. IMPRESSION: 1. No vascular abnormality of the aorta or pulmonary arteries. 2. Small groundglass opacity in the anterior right lower lobe. This is nonspecific. 2017/Fleischner Society recommendation, repeat follow-up CT chest in 6 months.
[2016-12-09 22:39] VITALS: BP 136/63
[2016-12-09] MEDS ORDERED: BROMFED DM COU118 M1 PO (22:47)
[2016-12-09] MEDS ORDERED: AUGMENTIN 500-1 EACH PO (22:47)
== END 2016-12-09 23:00 ==
LOC: ERH 14:40
PROVIDERS: Physician Assistant
DX: R07.89 Other chest pain (principal); Z87.891 Personal history of nicotine dependence
CPT/HCPCS: 1263; 93005; 93010